=== PATIENT | male | born 1960 | race Caucasian/White ===

== ENCOUNTER → 2023-06-06 08:00 | Outpatient (BNV) | payer OTHER, SELFPAY | PROVIDERS: Visit Provider Internal Medicine Cardiovascular Disease | DX: I35.0 Nonrheumatic aortic (valve) stenosis (principal); I35.1 Nonrheumatic aortic (valve) insufficiency | CPT/HCPCS: 93306 ==

== ENCOUNTER → 2023-06-06 08:20 | Outpatient (REF) | payer OTHER, SELFPAY ==
--- NOTE | 2023-06-06 08:00 | CA_ITS ---
Transthoracic Echocardiogram Patient (Last, First, Middle): Donte Osorio J Gender: Male Date of : 1960 Age: 63 Procedure Date: 06/06/2023 Procedure Type: Transthoracic Echocardiogram Location: OP Height: 177.8 cm Weight: 87.09 kg BSA: 2.05 m2 Heart Rate: 55 bpm BP: 125 / 75 mmHg Per Diem: BRYAN Santiago MD: Ge Carreno MD Stranding Machine Operator: Ilia Watkins MD Symptoms: CVA Study Quality: Adequate/Contrast ECG Rhythm: Bradycardia Conclusions: - 1. Hyperdynamic LV ejection fraction greater than 70% 2. Mild aortic regurgitation and stenosis 3. Normal RV systolic pressure 4. No gross pericardial effusion Findings Procedure Information Contrast agent, definity, is being given per protocol without apparent complications. Left Ventricle Normal left ventricular cavity size. There is normal left ventricular wall thickness. The left ventricular systolic function is hyperdynamic. The visually estimated ejection fraction is >70%. Spectral Doppler is indicative of a normal filling pattern. Right Ventricle Normal right ventricular cavity size and systolic function. Atria Both atria are normal in size. There is no evidence of interatrial shunt by agitated saline. Aortic Valve The aortic valve was not well visualized. There is mild calcification of the aortic valve. There is moderate thickening of the aortic valve. There is mild aortic valve stenosis. The peak aortic gradient is 23 mmHg.The mean gradient is 10 mmHg. The aortic valve area is 1.61 cm2. There is mild aortic valve regurgitation. Mitral Valve Normal mitral valve structure and function. There is trace mitral valve regurgitation. There is no mitral valve stenosis. Pulmonic Valve The pulmonic valve was not well visualized. Tricuspid Valve Likely normal tricuspid valve structure and function. There is trace tricuspid valve regurgitation. The right ventricular systolic pressure is normal. The right ventricular systolic pressure is 27 mmHg. Normal right atrial pressure. There is no evidence of pulmonary hypertension. Great Vessels All visible segments of the aorta are normal in size. The pulmonary artery was not well visualized. Venous The inferior vena cava is normal in size and collapses greater than 50% with inspiration. Pericardium/Pleural There is no evidence of pericardial effusion. Prior Study Comparison No prior study available for comparison. Measurements 2D Linear Measurements IVSd: 0.95 0.6-0.9/0.6-1.0 cm LVIDd: 4.13 3.9-5.3/4.2-5.9 cm LVIDd Index: 2.01 2.4-3.2/2.2-3.1 cm/m2 LVIDs: 1.94 2.0-3.6 cm LVPWd: 1.01 0.7-1.1 cm LA Diam: 3.80 2.7-3.8/3.0-4.0 cm LAIDs Index: 1.85 1.5-2.3 cm/m2 LV Mass: 161.41 67-162/88-224 g LV Mass Index: 78.74 43-95/49-115 g/m2 LVOT Diam: 1.70 3.0+(-)1.3 cm 2D Systolic Function EF 4C: 69.80 >55% EF 2C: 76.10 >55% EF BiP: 73.30 >55% Mitral Valve MV Pk E: 1.27 MV PK A: 1.10 MV Decel Time: 271.00 E/A: 1.20 E'Lateral: 11.10 E'Medial: 8.27 E/E' Med: 15.40 E/E' Lat: 11.40 PHT: 79.00 MVA PHT: 2.78 Decel [place]: 4.68 Aortic Valve AoV Pk Walter: 2.39 AoV Mn Walter: 1.47 AoV VTI: 0.53 AoV Pk Grad: 23.00 Aov Mn Grad: 10.00 AMRITA Cont.VTI: 1.61 AI Pk [place]: 4.10 AI [place]: 2.40 LVOT LVOT Pk [place]: 1.74 LVOT Mn [place]: 1.10 LVOT VTI: 0.38 LVOT Pk Grad: 12.00 LVOT Mn Grad: 6.00 LVOT Diam: 1.70 LVOT Area: 2.27 Diastolic Function MV Pk E: 1.27 MV Pk A: 1.10 E/A: 1.20 E'Medial: 8.27 E/E' Med: 15.40 E' Laterial: 11.10 E/E' Lat: 11.40 Right Ventricle TAPSE (mm): 25.80 TVS' Walter: 14.70 Tricuspid Valve TR Pk Walter: 2.16 TR Pk Grad: 19.00 RA Press: 8.00 RVSP: 27.00 Great Vessels Aorta Sinus of Valsalva: 3.60 2.0-3.5 cm Ao Asc: 3.30 2.1-3.4 cm Pulmonary Valve PV Pk [place]: 1.09 Peak PV Grad: 5.00 Updated in Other Vendor System with Status of Final Ilia Watkins MD electronically signed on 06/06/2023 4:19:52 PM with status of Final
== END ==
LOC: HO.CARD 08:20
PROVIDERS: Visit Provider Internal Medicine
DX: I63.50 Cerebral infarction due to unspecified occlusion or stenosis of unspecified cerebral artery (principal)
CPT/HCPCS: 93306; Q9957